=== PATIENT | female | born 1965 | race African-American/Black ===

== ENCOUNTER 2023-12-14 13:22 | Emergency (ER) | payer MEDICAID, OTHER ==
[~2023-12-14] VITALS: Ht 157.5 cm; Wt 91.0 kg
[~2023-12-14 13:22] MED LIST: LOPRESSOR
[2023-12-14 13:33] VITALS: TEMP 98.3; O2SAT 99
[2023-12-14] MEDS: ACETAMINOPHEN 325MG TABLET PO ONE (19:09)
[2023-12-14 19:28] LABS: CLARITY URINE CLEAR (CLEAR); COLOR URINE YELLOW (YELLOW); GLUCOSE URINE 2+ (NEGATIVE); KETONES URINE NEGATIVE (NEGATIVE); LEUKOCYTE ESTERASE URINE NEGATIVE (NEGATIVE); NITRITE URINE NEGATIVE (NEGATIVE); OCCULT BLOOD URINE NEGATIVE (NEGATIVE); PH URINE 5.5 (4.5-8.0); PROTEIN URINE NEGATIVE (NEGATIVE); SPECIFIC GRAVITY URINE 1.026 (1.005-1.030)
[2023-12-14 20:01] LABS: RBC URINE 0-2 /hpf (0-2); WBC URINE 0-2 /hpf (0-2)
[2023-12-14 20:02] LABS: BACTERIA URINE 2+; SQUAMOUS EPITHELIAL CELL URINE 2+ /lpf (RARE/1+)
[2023-12-14 20:38] VITALS: BP 170/75; PULSE 58; RESP 16
== END 2023-12-14 20:40 | disposition home or self-care (01) ==
LOC: ER 13:22
DX: R10.2 Pelvic and perineal pain (principal); D25.9 Leiomyoma of uterus, unspecified; E11.9 Type 2 diabetes mellitus without complications; E78.00 Pure hypercholesterolemia, unspecified; I10 Essential (primary) hypertension; F17.200 Nicotine dependence, unspecified, uncomplicated
CPT/HCPCS: 76830; 76856; 81003; 81025; 99284